=== PATIENT | female | born 1990 | race Caucasian/White ===

== ENCOUNTER 2020-03-01 18:57 | Inpatient (IN) ==
[2020-03-01] MEDS ORDERED: Metoclopramide 10 MG/2 ML VIAL IVP PRN (19:31)
[2020-03-01] MEDS ORDERED: *HR* FentaNYL (PF) 100 MCG/2 ML VIAL IVP PRN (19:31)
[2020-03-01] MEDS ORDERED: Ondansetron 4 MG/2 ML VIAL IVP PRN (19:31)
[2020-03-01] MEDS ORDERED: Lidocaine 1% 20 ML MDV INFILT PRN (19:31)
[2020-03-01] MEDS ORDERED: Famotidine 20 MG/2 ML VIAL IVP PRN (19:31)
[2020-03-01] MEDS ORDERED: Azithromycin 500 MG in 0.9 % Sodium Chloride 250 ML IVPB ONE (19:31)
[2020-03-01] MEDS ORDERED: Naloxone 0.4 MG/ML INJ IVP PRN (19:31)
[2020-03-01] MEDS ORDERED: Ringers Solution, Lactated 1,000 ML IVC SCH (19:45)
[2020-03-01 19:46] LABS: Basophils % 0.3 %; Eosinophils # 0.1 K/mcL (0.0-0.6); Eosinophils % 0.5 %; Hematocrit 36.7 % (35.3-44.9); Hemoglobin 12.4 g/dL (11.5-15.4); Immature Granulocytes % 1.2 % (0-4); Lymphocytes # 1.6 K/mcL (0.6-4.6); Lymphocytes % 10.5 %; Mean Corpuscular HGB Conc 33.8 g/dL (31.6-35.5); Mean Corpuscular Hemoglobin 30.2 pg (28.0-33.3); Mean Corpuscular Volume 89.5 fL (83.0-100.0); Mean Platelet Volume 9.9 fL (9.4-12.4); Monocytes # 0.7 K/mcL (0.0-1.3); Monocytes % 4.5 %; Neutrophils # 12.7 K/mcL (1.6-8.9); Platelet Count 252 K/mcL (140-400); Red Cell Distribution Width 13.4 % (11.5-14.5); White Blood Count 15.3 K/mcL (4.3-11.1)
[2020-03-01 20:55] LABS: Amphetamine Screen,Urine Negative ng/mL (Cutoff=1000); Barbiturate Screen,Urine Negative ng/mL (Cutoff=200); Benzodiazepines Screen,Urine Negative ng/mL (Cutoff=200); Cannabinoid Screen,Urine Negative ng/mL (Cutoff = 50); Cocaine Screen,Urine Negative ng/mL (Cutoff= 300); Opiate Screen,Urine Negative ng/mL (Cutoff=300); Phencyclidine Screen,Urine Negative ng/mL (Cutoff=25)
[2020-03-01] MEDS ORDERED: Ropivacaine/PF 0.2% 20 ML VIAL EP ONE (21:49)
[2020-03-01] MEDS ORDERED: EPHEDrine 50 MG/ML VIAL IVP PRN (21:49)
[2020-03-01] MEDS ORDERED: Epidural Premix (fent/bupiv) 110 ML EP SCH (22:00)
[2020-03-02] MEDS ORDERED: Oxytocin 20 units/ LR 1000 mL 20 UNIT/1,000 ML BAG IVC ONE (03:09)
[2020-03-02] MEDS ORDERED: Benzocaine/Menthol 56 GM AEROSOL SPRAY TP PRN (08:18)
[2020-03-02] MEDS ORDERED: Oxytocin 20 units/ LR 1000 mL 20 UNIT/1,000 ML BAG IVC SCH (08:18)
[2020-03-02] MEDS ORDERED: Lanolin 7 G OINT...G. TP PRN (08:18)
[2020-03-02] MEDS: Prenatal Vit/FA 1 EACH TABLET PO SCH (09:11)
[2020-03-02] MEDS: Ibuprofen 600 MG TABLET PO SCH ×2 (14:39→16:13)
[2020-03-02] MEDS: Acetaminophen 325 MG TABLET PO SCH ×2 (14:40→16:14)
[2020-03-03 05:22] LABS: Basophils # 0.1 K/mcL (0.0-0.2); Basophils % 0.4 %; Eosinophils # 0.1 K/mcL (0.0-0.6); Eosinophils % 1.2 %; Hematocrit 32.2 % (35.3-44.9); Immature Granulocytes % 1.6 % (0-4); Lymphocytes # 2.3 K/mcL (0.6-4.6); Lymphocytes % 18.8 %; Mean Corpuscular HGB Conc 33.5 g/dL (31.6-35.5); Mean Corpuscular Hemoglobin 30.5 pg (28.0-33.3); Mean Platelet Volume 9.9 fL (9.4-12.4); Monocytes # 0.6 K/mcL (0.0-1.3); Monocytes % 4.8 %; Neutrophils # 8.9 K/mcL (1.6-8.9); Platelet Count 234 K/mcL (140-400); Red Blood Count 3.54 M/mcL (3.82-4.97); Red Cell Distribution Width 13.3 % (11.5-14.5); Segmented Neutrophils % 73.2 %; White Blood Count 12.1 K/mcL (4.3-11.1)
[2020-03-03 05:25] LABS: Hemoglobin 10.8 g/dL (11.5-15.4)
[2020-03-03 07:48] VITALS: BP 91/62
[2020-03-03] MEDS: Prenatal Vit/FA 1 EACH TABLET PO SCH (08:42)
== END 2020-03-03 10:55 | disposition home or self-care (01) | DRG 560 ==
LOC: 1NENULAB 18:57 → 1NENUOBS 03-02 07:53
PROVIDERS: ADMIT Obstetrics & Gynecology; ATTEND Obstetrics & Gynecology